=== PATIENT | female | born 1950 | race Caucasian/White ===

== ENCOUNTER 2017-09-11 07:10 | Day surgery (SDC) | payer OTHER ==
[~2017-09-11] VITALS: Ht 154.9 cm; Wt 77.1 kg
[~2017-09-11 07:10] MED LIST: BENEFIBER152 GM PO; BIOTIN1 MG PO; ERGOCALCIF50000 UNIT PO; HYZAAR 50-121 TABLET PO; LEXAPRO10 MG PO; MULTI-VITAMIN-1 EACH PO; PREVACID SOLUTA30 MG PO; TOPAMAX50 MG PO
[2017-09-11 07:47] VITALS: BP 131/66
[2017-09-11 10:20] VITALS: BP 125/74
[2017-09-11 10:47] VITALS: BP 119/59
== END 2017-09-11 10:55 | disposition home or self-care (01) ==
LOC: SDC 07:10
DX: H35.342 Macular cyst, hole, or pseudohole, left eye (principal); H35.372 Puckering of macula, left eye; E78.5 Hyperlipidemia, unspecified; K58.9 Irritable bowel syndrome, unspecified; K21.9 Gastro-esophageal reflux disease without esophagitis; F32.9 Major depressive disorder, single episode, unspecified; F43.10 Post-traumatic stress disorder, unspecified; M48.00 Spinal stenosis, site unspecified; Z88.5 Allergy status to narcotic agent; Z88.8 Allergy status to other drugs, medicaments and biological substances
CPT/HCPCS: J0690; J2250; J2405; J3010; J3300